=== PATIENT | male | born 1940 | race Caucasian/White ===

== ENCOUNTER 2019-07-31 13:35 | Emergency (ER) | payer MEDICARE ==
[2019-07-31] MEDS ORDERED: LIDOCAINE 1% 10 ML VIAL INJ ONE (13:40)
[2019-07-31 13:50] VITALS: TEMP 97
--- NOTE | 2019-07-31 14:05 | ED.PDOC ---
History of Present Illness - General Chief Complaint: Laceration Stated Complaint: left finger laceration Time Seen by Provider: 07/31/19 13:38 Source: patient Exam Limitations: no limitations - History of Present Illness Initial Comments: Patient is a 79-year-old male presented emergency room secondary to laceration over the middle phalanx of the fourth digit of the left hand dorsally. A structural metal fabricator apprentice flew apart while he was using it and cut him. No other injuries. He opens and closes the hand without significant difficulty. No significant loss of sensation distally. Capillary refill is within normal limits. No evidence of any tenderness. Laceration is about three-quarter inch in length. Timing/Duration: momentarily Severity: mild Improving Factors: nothing Worsening Factors: nothing Associated Symptoms: denies symptoms Allergies/Adverse Reactions: Allergies NO KNOWN ALLERGY Allergy (Verified 07/31/19 13:53) Home Medications: Ambulatory Orders Atenolol [Tenormin] 25 mg PO DAILY 07/31/19 Atorvastatin Calcium 40 mg PO BEDTIME 07/31/19 Sulfa/Trimeth 800/160 (Ds) Tab [Bactrim DS Tab] 1 ea PO DAILY #4 tab 07/31/19 Review of Systems - Review of Systems Constitutional: States: no symptoms reported EENTM: States: no symptoms reported Respiratory: States: no symptoms reported Cardiology: States: no symptoms reported Gastrointestinal/Abdominal: States: no symptoms reported Genitourinary: States: no symptoms reported Musculoskeletal: States: no symptoms reported Skin: States: see HPI Neurological: States: no symptoms reported Endocrine: States: no symptoms reported All other Systems: No Change from Baseline Past Medical History (General) - Patient Medical History Hx Congestive Heart Failure: No Hx Hypertension: Yes - Vaccination History Hx Tetanus, Diphtheria Vaccination: Yes Hx Influenza Vaccination: Yes - Social History Hx Alcohol Use: Yes - Activities of Daily Living Hospice Agency (if applicable):: None - Female History Patient is a Female of Child Bearing Age (10 -59 yrs old): No - Triage Comment ED Triage Comment: left ring finger laceration from thread grinder while tearing down metal fence. bleeding stabilized at this time. pt alert and oriented x3, converses with ease. 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 No evidence of obvious neurovascular compromise or mechanical compromise. 5 simple sutures of 4-0 Ethilon were placed. Sutures need to come out in about 10 days. He should keep Neosporin and a Band-Aid in place. He will be placed on Bactrim daily for the next 5 days as a prophylactic measure only. ER warnings are given for any evidence of infection or any worsening. Procedure note: The risks and benefits of repair were explained and patient agrees to proceed. Wound was irrigated for 5 minutes with running water. Lidocaine without epinephrine x2 cc was used as a local anesthetic. 5 simple sutures of 4-0 Ethilon were placed without difficulty. Estimated blood loss less than 1 cc. He appears to be neurovascularly and mechanically intact. [email or web address] Departure - Departure Clinical Impression: Accidental laceration Disposition: Discharge to Home or Self Care Condition: Fair Departure Forms: ED Discharge - Pt. Copy, Patient Portal Self Enrollment Instructions: DI for Laceration Repair, DI for Laceration Repair -- Simple Diet: regular diet Activity: increase activity as tolerated Prescriptions: Sulfa/Trimeth 800/160 (Ds) Tab [Bactrim DS Tab] 1 ea PO DAILY #4 tab Home Medications: Ambulatory Orders Atenolol [Tenormin] 25 mg PO DAILY 07/31/19 Atorvastatin Calcium 40 mg PO BEDTIME 07/31/19 Sulfa/Trimeth 800/160 (Ds) Tab [Bactrim DS Tab] 1 ea PO DAILY #4 tab 07/31/19 Additional Instructions: Patient is a 79-year-old male presented emergency room secondary to a laceration to the dorsal aspect of the fourth digit of his left hand. No evidence of obvious neurovascular compromise or mechanical compromise. 5 simple sutures of 4-0 Ethilon were placed. Sutures need to come out in about 10 days. He should keep Neosporin and a Band-Aid in place. He will be placed on Bactrim daily for the next 5 days as a prophylactic measure only. ER warnings are given for any evidence of infection or any worsening.
[2019-07-31] MEDS: SULFA/TRIMETH 800/160 (DS) TAB 1 EA TAB PO ONE (14:06)
[2019-07-31 14:23] VITALS: BP 142/93; O2SAT 97
== END 2019-07-31 14:15 | disposition home or self-care (01) ==
LOC: ER 13:35
DX: S61.215A Laceration without foreign body of left ring finger without damage to nail, initial encounter (principal); I10 Essential (primary) hypertension; W26.8XXA Contact with other sharp object(s), not elsewhere classified, initial encounter; Y92.9 Unspecified place or not applicable